=== PATIENT | female | born 2000 | race Caucasian/White ===

== ENCOUNTER → 2018-07-30 07:35 | Outpatient (CLI) | payer OTHER, SELFPAY ==
--- NOTE | 2018-07-30 07:43 | DI.RAD.S_ITS ---
PROCEDURE: XR CERVICAL SPINE 4V OR 5V INDICATIONS: CHRONIC NECK PAIN TECHNIQUE: 5 views of the cervical spine acquired. COMPARISON: None. FINDINGS: Bones: No fractures or dislocations to the C7 level. Oblique images demonstrate no bony foraminal stenoses. Soft tissues: No prevertebral soft tissue swelling. IMPRESSION: No acute fracture. No osseous lesion. If symptoms or clinical suspicion for pathology persists, repeat plain films, or advanced imaging (CT, bone scan, or MRI) may be helpful for further assessment. Dictated by: Manolo Plaza M.D. on 07/30/2018 at 7:07 Approved by: Manolo Plaza M.D. on 07/30/2018 at 7:08
== END ==
PROVIDERS: PCP Nurse Practitioner Family; Visit Provider Nurse Practitioner Family
DX: M54.2 Cervicalgia (principal)
CPT/HCPCS: 72050